=== PATIENT | male | born 1985 | race Caucasian/White ===

== ENCOUNTER 2018-03-09 09:41 | Emergency (ER) | payer OTHER ==
[2018-03-09 09:53] VITALS: Ht 180.3 cm
[2018-03-09 11:15] VITALS: BP 152/98
== END 2018-03-09 11:15 | disposition home or self-care (01) ==
LOC: ED 09:41
DX: H66.91 Otitis media, unspecified, right ear (principal)

== ENCOUNTER 2019-07-06 11:47 | Emergency (ER) | payer SELFPAY ==
[~2019-07-06] VITALS: Ht 180.3 cm; Wt 82.1 kg
[2019-07-06 11:50] VITALS: Ht 180.3 cm; Wt 82.1 kg
[2019-07-06 14:33] VITALS: BP 103/64
== END 2019-07-06 14:33 | disposition home or self-care (01) ==
LOC: ED 11:47
DX: S01.112A Laceration without foreign body of left eyelid and periocular area, initial encounter (principal); Y08.89XA Assault by other specified means, initial encounter; Y93.89 Activity, other specified; Y92.89 Other specified places as the place of occurrence of the external cause; Y99.8 Other external cause status
CPT/HCPCS: 90715